=== PATIENT | female | born 1995 | race Caucasian/White ===

== ENCOUNTER 2018-02-18 09:26 | Inpatient (IN) ==
[2018-02-18] MEDS ORDERED: HYDROmorphone 2 MG/1 ML VIAL IV STA (10:28)
[2018-02-18] MEDS ORDERED: ONDANSETRON 4 MG/2 ML VIAL IV STA (10:28)
[2018-02-18] MEDS ORDERED: SODIUM CHLORIDE 0.9% 1,000 ML IV STA (10:28)
[2018-02-18 10:43] LABS: Basophils # 0.1 10*3/uL (0.0-0.2); Basophils % 0.3 % (0.0-0.8); Eosinophils # 0.1 10*3/uL (0.0-0.87); Eosinophils % 0.5 % (0.00-10.9); Hematocrit 46.4 VOL% (35.7-47.0); Immature Granulocytes % 0.8 %; Immature Granulocytes Absolute 0.17 #; Lymphocytes # 1.3 10*3/uL (1.4-4.0); Lymphocytes % 6.2 % (21.3-54.2); Mean Corpuscular HGB Conc 34.5 GM/DL (32-36); Mean Corpuscular Hemoglobin 31 PG (27-34); Mean Corpuscular Volume 90.8 FL (87-102); Monocytes # 1.4 10*3/uL (0.11-0.8); Monocytes % 6.4 % (1.7-12.7); Neutrophils # 18.5 10*3/uL (1.4-7.4); Neutrophils % 85.8 % (38.7-73.9); Platelet Count 301 T/CUMM (130-400); Red Blood Count 5.11 MC/CUMM (3.8-5.5); Red Cell Distribution Width 12.7 % (9.3-17.3); White Blood Count 21.5 T/CUMM (4-12)
[2018-02-18 11:01] LABS: Albumin 3.4 G/DL (3.4-5.0); Bilirubin,Total 0.4 MG/DL (0.2-1.0); Osmolality,Calculated 270.4 MOS/KG (273-304); Potassium 3.4 MMOL/L (3.5-5.1); Total Protein 8.5 G/DL (6.4-8.3)
[2018-02-18 11:03] LABS: Band Neutrophils 7 % (0-10); Lymphocytes 9 % (20-55); Segmented Neutrophils 76 % (50-85); Total Cells Counted 100
[2018-02-18 11:04] LABS: Hypochromasia Slight; Microcytosis Slight
[2018-02-18] MEDS ORDERED: metroNIDAZOLE INJ 500 MG in PREMIX 1 EACH IV STA (11:40)
[2018-02-18] MEDS ORDERED: LEVOFLOXACIN INJ 500 MG in PREMIX 1 EACH IV STA (11:40)
[2018-02-18 11:57] LABS: Apearance,Urine Clear (Clear); Glucose,Urine (UA) Negative (Negative); Ketones,Urine 100 mg/dL (Negative); Protein,Urine >500 MG/DL; Urine Color Yellow (Yellow); Urine Specific Gravity 1.035 (1.001-1.035)
[2018-02-18 11:58] LABS: Bacteria,Urine Few /HPF (Few); Bilirubin,Urine Small mg/dL (Negative); Blood, Urine Large mg/dL (Negative); Nitrite,Urine Negative (Negative); Squamous Epithelial Cell,Urine Few /HPF (0-10)
[2018-02-18 11:59] LABS: Mucus,Urine Few /LPF (Occasional)
[2018-02-18] MEDS ORDERED: ACETAMINOPHEN 325 MG TABLET PO PRN (13:35)
[2018-02-18] MEDS ORDERED: ONDANSETRON 4 MG/2 ML VIAL IV PRN (13:35)
[2018-02-18] MEDS ORDERED: SODIUM CHLORIDE 0.9% 1,000 ML IV SCH (14:00)
[2018-02-18] MEDS ORDERED: AZITHROMYCIN INJ 500 MG in SODIUM CHLORIDE 0.9% 250 ML IV SCH (14:30)
[2018-02-18] MEDS: DEXT 5% NACL 0.9% KCL 20 MEQ 20 MEQ/1,000 ML BAG IV SCH (17:36)
[2018-02-18] MEDS: cefTRIAXone 2,000 MG in SYRINGE 1 EACH IV SCH (17:37)
[2018-02-18] MEDS ORDERED: HYDROmorphone 2 MG/1 ML VIAL IV PRN (17:44)
[2018-02-18] MEDS: NICOTINE 21 MG/24 HR PATCH TRANSDERM SCH (18:25)
[2018-02-18] MEDS ORDERED: cefOXitin 2,000 MG in SYRINGE 1 EACH IV ONE (20:00)
[2018-02-18] MEDS ORDERED: BUPIVACAINE MPF 0.25% /EPI 30 ML VIAL ONE (20:10)
[2018-02-18] MEDS ORDERED: TISSUE ADHESIVE 1 EACH APPLICATOR TOP ONE (20:10)
[2018-02-18] MEDS ORDERED: LIDOCAINE 1%/EPI INJ 20 ML VIAL ONE (20:10)
[2018-02-18] MEDS ORDERED: PROPOFOL 200 MG/20 ML VIAL IV ONE (22:21)
[2018-02-18] MEDS ORDERED: DESFLURANE 1 UNIT/15 MINUTE INH ONE (22:21)
[2018-02-18] MEDS ORDERED: ROCURONIUM 100 MG/10 ML VIAL IV ONE (22:22)
[2018-02-18] MEDS ORDERED: DEXAMETHASONE 10 MG/1 ML VIAL ONE (22:22)
[2018-02-18] MEDS ORDERED: GLYCOPYRROLATE 0.4 MG/2 ML VIAL ONE (22:22)
[2018-02-18] MEDS ORDERED: SUCCINYLCHOLINE 200 MG/10 ML VIAL ONE (22:22)
[2018-02-18] MEDS ORDERED: KETOROLAC 30 MG/1 ML VIAL ONE (22:22)
[2018-02-18] MEDS ORDERED: NEOSTIGMINE 10 MG/10 ML VIAL ONE (22:22)
[2018-02-18] MEDS ORDERED: HYDROmorphone 2 MG/1 ML VIAL ONE (22:22)
[2018-02-18] MEDS ORDERED: ONDANSETRON 4 MG/2 ML VIAL ONE (22:22)
[2018-02-18] MEDS ORDERED: LACTATED RINGERS 1,000 ML IV ONE (22:22)
[2018-02-18] MEDS ORDERED: fentaNYL 100 MCG/2 ML VIAL ONE (22:22)
[2018-02-18] MEDS ORDERED: GENTAMICIN INJ 120 MG in PREMIX 1 EACH IV SCH (23:00)
[2018-02-19] MEDS: DOXYCYCLINE HYCLATE INJ 100 MG in SODIUM CHLORIDE 0.9% 100 ML IV SCH ×2 (01:00→13:39)
[2018-02-19] MEDS: DEXT 5% NACL 0.9% KCL 20 MEQ 20 MEQ/1,000 ML BAG IV SCH ×2 (02:21→18:43)
[2018-02-19 05:26] LABS: Basophils % 0.3 % (0.0-0.8); Hematocrit 37.8 VOL% (35.7-47.0); Immature Granulocytes % 0.5 %; Immature Granulocytes Absolute 0.05 #; Lymphocytes # 0.6 10*3/uL (1.4-4.0); Lymphocytes % 6.3 % (21.3-54.2); Mean Corpuscular HGB Conc 34.4 GM/DL (32-36); Mean Corpuscular Hemoglobin 32 PG (27-34); Mean Corpuscular Volume 92.2 FL (87-102); Mean Platelet Volume 11.7 FL (9.6-12.0); Monocytes # 0.8 10*3/uL (0.11-0.8); Monocytes % 7.9 % (1.7-12.7); Neutrophils # 8.5 10*3/uL (1.4-7.4); Platelet Count 257 T/CUMM (130-400); Red Cell Distribution Width 12.7 % (9.3-17.3)
[2018-02-19 05:40] LABS: Albumin 2.3 G/DL (3.4-5.0); Bilirubin,Total 1.2 MG/DL (0.2-1.0); Calcium 8.6 MG/DL (8.5-10.1); Osmolality,Calculated 275.8 MOS/KG (273-304); Total Protein 6.1 G/DL (6.4-8.3)
[2018-02-19 05:50] LABS: Band Neutrophils 6 % (0-10); Lymphocytes 6 % (20-55); Platelet Estimate Normal; Segmented Neutrophils 85 % (50-85); Total Cells Counted 100
[2018-02-19] MEDS: PANTOPRAZOLE 40 MG TABLET PO SCH ×2 (07:43→08:14)
[2018-02-19] MEDS: NICOTINE 21 MG/24 HR PATCH TRANSDERM SCH ×2 (07:44→08:14)
[2018-02-19] MEDS: GENTAMICIN INJ 350 MG in SODIUM CHLORIDE 0.9% 100 ML IV SCH (11:58)
[2018-02-19] MEDS: cefTRIAXone 2,000 MG in SYRINGE 1 EACH IV SCH (16:05)
[2018-02-20] MEDS: DOXYCYCLINE HYCLATE INJ 100 MG in SODIUM CHLORIDE 0.9% 100 ML IV SCH ×2 (01:27→14:10)
[2018-02-20 03:28] LABS: Basophils % 0.1 % (0.0-0.8); Eosinophils % 0.3 % (0.00-10.9); Hematocrit 32.9 VOL% (35.7-47.0); Immature Granulocytes % 0.7 %; Immature Granulocytes Absolute 0.06 #; Lymphocytes # 2.2 10*3/uL (1.4-4.0); Lymphocytes % 24.9 % (21.3-54.2); Mean Corpuscular HGB Conc 33.4 GM/DL (32-36); Mean Corpuscular Hemoglobin 31 PG (27-34); Mean Corpuscular Volume 91.9 FL (87-102); Mean Platelet Volume 11.4 FL (9.6-12.0); Monocytes % 11.1 % (1.7-12.7); Neutrophils # 5.6 10*3/uL (1.4-7.4); Neutrophils % 62.9 % (38.7-73.9); Platelet Count 250 T/CUMM (130-400); Red Blood Count 3.58 MC/CUMM (3.8-5.5); White Blood Count 8.9 T/CUMM (4-12)
[2018-02-20 04:15] LABS: Calcium 8.2 MG/DL (8.5-10.1); Potassium 3.7 MMOL/L (3.5-5.1)
[2018-02-20] MEDS: DEXT 5% NACL 0.9% KCL 20 MEQ 20 MEQ/1,000 ML BAG IV SCH ×2 (05:30→21:18)
[2018-02-20] MEDS: PANTOPRAZOLE 40 MG TABLET PO SCH (09:38)
[2018-02-20] MEDS: NICOTINE 21 MG/24 HR PATCH TRANSDERM SCH (09:38)
[2018-02-20] MEDS ORDERED: BISACODYL 10 MG SUPP RECTAL ONE (10:02)
[2018-02-20] MEDS: GENTAMICIN INJ 350 MG in SODIUM CHLORIDE 0.9% 100 ML IV SCH (12:30)
[2018-02-20] MEDS: ALBUTEROL/IPRATROPIUM 3 ML NEB RESP TX SCH ×2 (13:45→19:02)
[2018-02-20] MEDS: cefTRIAXone 2,000 MG in SYRINGE 1 EACH IV SCH (14:10)
[2018-02-20] MEDS: DORNASE ALFA 2.5 MG/2.5 ML VIAL RESP TX SCH (19:02)
[2018-02-21] MEDS: ALBUTEROL/IPRATROPIUM 3 ML NEB RESP TX SCH ×4 (00:40→20:17)
[2018-02-21] MEDS: DOXYCYCLINE HYCLATE INJ 100 MG in SODIUM CHLORIDE 0.9% 100 ML IV SCH ×2 (01:10→13:48)
[2018-02-21 05:11] LABS: Basophils % 0.4 % (0.0-0.8); Eosinophils # 0.2 10*3/uL (0.0-0.87); Hematocrit 35.2 VOL% (35.7-47.0); Hemoglobin 11.6 GM/DL (12.0-16.0); Immature Granulocytes % 1.2 %; Immature Granulocytes Absolute 0.13 #; Lymphocytes # 3.2 10*3/uL (1.4-4.0); Mean Corpuscular Hemoglobin 30 PG (27-34); Mean Corpuscular Volume 92.1 FL (87-102); Mean Platelet Volume 11.1 FL (9.6-12.0); Monocytes % 9.7 % (1.7-12.7); Neutrophils % 56.7 % (38.7-73.9); Platelet Count 232 T/CUMM (130-400); Red Blood Count 3.82 MC/CUMM (3.8-5.5); Red Cell Distribution Width 13.2 % (9.3-17.3); White Blood Count 10.6 T/CUMM (4-12)
[2018-02-21 05:25] LABS: Alanine Aminotransferase 10 U/L (13-56); Albumin 2.3 G/DL (3.4-5.0); Alkaline Phosphatase 52 U/L (45-117); Aspartate Amino Transferase 7 U/L (0-37); Bilirubin,Total < 0.39 MG/DL (0.2-1.0); Blood Urea Nitrogen 7 MG/DL (7-18); Calcium 8.3 MG/DL (8.5-10.1); Glucose 108 MG/DL (74-106); Osmolality,Calculated 277.4 MOS/KG (273-304); Potassium 3.9 MMOL/L (3.5-5.1); Sodium 140 MMOL/L (136-145); Total Protein 5.5 G/DL (6.4-8.3)
[2018-02-21] MEDS: DORNASE ALFA 2.5 MG/2.5 ML VIAL RESP TX SCH ×2 (07:05→20:17)
[2018-02-21] MEDS: DEXT 5% NACL 0.9% KCL 20 MEQ 20 MEQ/1,000 ML BAG IV SCH ×3 (07:42→22:41)
[2018-02-21] MEDS: NICOTINE 21 MG/24 HR PATCH TRANSDERM SCH (09:49)
[2018-02-21] MEDS: PANTOPRAZOLE 40 MG TABLET PO SCH (09:50)
[2018-02-21] MEDS: GENTAMICIN INJ 350 MG in SODIUM CHLORIDE 0.9% 100 ML IV SCH (10:59)
[2018-02-21] MEDS: cefTRIAXone 2,000 MG in SYRINGE 1 EACH IV SCH (15:33)
[2018-02-21] MEDS: metroNIDAZOLE 500 MG TABLET PO SCH (20:18)
[2018-02-21] MEDS: DOXYCYCLINE HYCLATE 100 MG CAPSULE PO SCH (20:18)
[2018-02-21] MEDS: DOCUSATE SODIUM 100 MG CAPSULE PO SCH (20:50)
[2018-02-22] MEDS: ALBUTEROL/IPRATROPIUM 3 ML NEB RESP TX SCH ×3 (01:37→13:00)
[2018-02-22] MEDS: DEXT 5% NACL 0.9% KCL 20 MEQ 20 MEQ/1,000 ML BAG IV SCH ×3 (05:39→08:44)
[2018-02-22] MEDS: DORNASE ALFA 2.5 MG/2.5 ML VIAL RESP TX SCH (07:23)
[2018-02-22] MEDS: DOCUSATE SODIUM 100 MG CAPSULE PO SCH (08:44)
[2018-02-22] MEDS: PANTOPRAZOLE 40 MG TABLET PO SCH (08:44)
[2018-02-22] MEDS: metroNIDAZOLE 500 MG TABLET PO SCH (08:44)
[2018-02-22] MEDS: NICOTINE 21 MG/24 HR PATCH TRANSDERM SCH (08:44)
[2018-02-22] MEDS: DOXYCYCLINE HYCLATE 100 MG CAPSULE PO SCH (08:44)
[2018-02-22 11:33] VITALS: BP 103/62
[2018-02-22] MEDS: cefTRIAXone 2,000 MG in SYRINGE 1 EACH IV SCH (16:09)
== END 2018-02-22 16:27 | disposition home or self-care (01) | DRG 341 ==
LOC: N.ED 09:26 → N.EDINP 13:35 → N.3E 14:09
PROVIDERS: ADMIT Hospitalist; ATTEND Hospitalist